=== PATIENT | female | born 1975 | race Caucasian/White ===

== ENCOUNTER → 2016-06-21 | Outpatient (CLI) | payer OTHER | LOC: RAD 12:51 | DX: M25.552 Pain in left hip (principal) | CPT/HCPCS: 73502 ==

== ENCOUNTER → 2020-04-21 | Outpatient (CLI) | payer OTHER | LOC: LAB 12:55 | DX: I47.2 Ventricular tachycardia (principal) | CPT/HCPCS: 36415; 83735 ==

== ENCOUNTER 2020-04-24 00:40 | Emergency (ER) | payer OTHER ==
[2020-04-24 03:03] LABS: HEMOGLOBIN 15.8 gm/dl (12.3-15.3); RED BLOOD COUNT 5.03 M/UL (4.00-5.10); WHITE BLOOD COUNT 11.4 K/UL (4.5-11.0)
[2020-04-24 03:36] LABS: BUN/CREATININE RATIO 23 (0-10)
== END 2020-04-24 07:25 | disposition home or self-care (01) ==
LOC: ER1 00:40
PROVIDERS: Family Medicine
DX: R06.02 Shortness of breath (principal); R74.02 Elevation of levels of lactic acid dehydrogenase [LDH]; E86.0 Dehydration; R05 Cough; R06.2 Wheezing; M54.9 Dorsalgia, unspecified; G89.29 Other chronic pain; I10 Essential (primary) hypertension; F17.200 Nicotine dependence, unspecified, uncomplicated; Z88.1 Allergy status to other antibiotic agents; Z79.891 Long term (current) use of opiate analgesic; Z20.822 Contact with and (suspected) exposure to COVID-19
CPT/HCPCS: 36415; 71045; 80053; 81001; 82550; 82553; 83605; 84484; 85025; 87040; 87086; 99285; J7030; U0002